=== PATIENT | male | born 1995 | race Two or more races ===

== ENCOUNTER 2017-07-05 09:55 | Emergency (ER) | payer OTHER ==
--- NOTE | ~2017-07-05 | ER ---
PATIENT'S NAME: KRYSTINA SILVANATHAN [facility] AGE: 22 Y [address] ROOM: [place] [id number] LOCATION: [facility] ADMIT DATE: 07/05/2017 ER/Outpatient Report DISCHARGE DATE: 07/05/2017 FAMILY PHYSICIAN: PHYSICIAN, NO ATTENDING PHYSICIAN: Felipe Vergara TIME OF ARRIVAL: 0955 hours. TIME OF EVALUATION: 10 a.m. CHIEF COMPLAINT: Back pain. HISTORY OF PRESENT ILLNESS: This is a 22-year-old otherwise healthy male who was brought in via EMS after trauma related to his back. He reports that he works for a [employer] company and was up on the rooftop when his boss was using a lift to lower metal sheet onto the roof. He did not notice that the patient was underneath the lift and slowly lowered it down upon him. The patient then had to bend down under the weight of the lift. He did not fall or was not crushed by the lift. Once he arrived to the ER, he was able to walk off the ambulance into the examination room. Currently, he reports that his pain is midline, sharp, and does not radiate. He denies any numbness or tingling in his hands or legs as well as weakness. He denies any other neurologic deficits. He does report that his pain is 9/10. PAST MEDICAL HISTORY: Unremarkable. SOCIAL HISTORY: He smokes 1/3 pack of cigarettes per day. He lives in [place] in [place], but is here working on a job. Denies illicit drug use or alcohol use. MEDICATIONS: He takes no medications. ALLERGIES: HE HAS NO MEDICAL ALLERGIES. REVIEW OF SYSTEMS: All review of systems are as per HPI. PHYSICAL EXAMINATION: PATIENT'S NAME: ANA SILVA [facility] AGE: 22 Y [address] ROOM: [place], [place] [address] LOCATION: [facility] ADMIT DATE: 07/05/2017 ER/Outpatient Report DISCHARGE DATE: 07/05/2017 FAMILY PHYSICIAN: PHYSICIAN, KEZIA ATTENDING PHYSICIAN: Felipe Vergara VITAL SIGNS: Pulse of 62, respiratory rate of 20, temperature 97.8, and O2 saturation of 97%. CONSTITUTIONAL: He appears in no apparent distress. He is alert and oriented. HEENT: Grossly normal. CARDIOVASCULAR: Regular rate and rhythm. LUNGS: Clear to auscultation bilaterally. BACK: Tenderness to palpation over thoracic spine. Mild paraspinal tenderness over the thoracic paraspinal muscles. He has normal range of motion with forward flexion of his spine. NEUROLOGIC: Motor and sensation intact in the extremities. Coordination normal with [id number] testing. LABORATORY AND X-RAY DATA: Thoracic x-ray as read by me, no acute fractures or bony deformities. Otherwise, normal. Awaiting radiologist's read. IMPRESSION: Thoracic back strain. PLAN: Discussed with the patient no acute fractures noted on x-ray. Discussed using ice, regular stretching, and then prescription was given for ibuprofen 800 mg tablets; encouraged him to take one tablet every 8 hours scheduled over the next 5 days with food. Discussed that he should return if he were to develop any neurologic deficits such as weakness, numbness, paralysis, saddle anesthesia, or issues with his bowel or bladder. TAYLOR ALVARENGA MD FOR FELIPE VERGARA DO CW/modl /[id number] ATTENDING ADDENDUM: I saw and evaluated the patient. I have discussed with the Resident, agree with the Resident's findings and plan and agree with the documented note above. FELIPE VERGARA DO d: 07/05/17 1648 t: 07/06/17 1522, OUTPATIENT REPORT
== END 2017-07-05 11:08 | disposition disaster alternative care site (69) ==
LOC: GACC 09:55
DX: S29.012A Strain of muscle and tendon of back wall of thorax, initial encounter (principal); F17.210 Nicotine dependence, cigarettes, uncomplicated; X50.0XXA Overexertion from strenuous movement or load, initial encounter
CPT/HCPCS: J1885

== ENCOUNTER → 2017-07-05 | Outpatient (CLI) | payer OTHER | END | disposition disaster alternative care site (69) | LOC: GAMB 09:41 | DX: S39.92XA Unspecified injury of lower back, initial encounter (principal); M54.6 Pain in thoracic spine; M54.5 Low back pain; W23.0XXA Caught, crushed, jammed, or pinched between moving objects, initial encounter | CPT/HCPCS: A0425; A0429 ==